=== PATIENT | female | born 1995 | race Caucasian/White ===

== ENCOUNTER 2019-12-09 00:44 | Outpatient (CLI) | payer BC ==
[2019-12-09 05:07] VITALS: BP 117/69; PULSE 105; RESP 16; TEMP 97.8
--- NOTE | 2019-12-26 11:45 | P.MSEPDOC ---
Presenting Problems - Arrival Data Date of Arrival on Unit: 12/09/19 Time of Arrival on Unit: 00:44 Mode of Transport: Ambulatory - Complaint OB-Reason for Admission/Chief Complaint: Decreased Movement Comment: Patient arrives to triage with complaints of decreased movement. Patient states she has not felt the baby move in the last 45 minutes. Medical History - Information : 1 Para: 0 Term: 0 : 0 Abortions: Spontaneous or Elective: 0 Number of Living Children: 0 - Gestational Age Gestational Age by JOE (wks/days): 39 Weeks and 0 Days Review of Systems - Review of Systems Constitutional: No problems Breast: No problems ENT: No problems Cardiovascular: No problems Respiratory: No problems Gastrointestinal: No problems Genitourinary: No problems Musculoskeletal: No problems Neurological: No problems Skin: No problems Vital Signs - Temperature Temperature: 97.8 F Temperature Source: Temporal Artery Scan - Pulse Right Brachial Pulse Rate: 105 Pulse Assessment Method: Automatic Cuff - Respirations Respiratory Rate: 16 Oxygen Delivery Method: Room Air O2 Sat by Pulse Oximetry: 98 - Blood Pressure Right Arm Blood Pressure: 117/69 Blood Pressure Mean: 85 Blood Pressure Source: Automatic Cuff Medical Screen Scoring (Pre) - Cervical Exam Dilation: Exam Deferred Effacement: Exam Deferred - Uterine Contractions Frequency: N/A Duration: N/A Intensity: N/A - Maternal Vital Signs Maternal Temperature: N/A Maternal Blood Pressure: N/A Signs of Preeclampsia: N/A Maternal Respirations: N/A - Maternal Trauma Maternal Trauma: N/A - Assessment - Baby A Baseline FHR: 125 Heart Rate - NICHD Category: Category I (Normal) = 0 NST: Reactive - Total Score - Baby A Total Score - Baby A: 0 - Total Score - Baby B Total Score - Baby B: 0 - Total Score - Baby C Total Score - Baby C: 0 - Level of Risk - Baby A Level of Risk - Baby A: Low (0-5) - Level of Risk - Baby B Level of Risk - Baby B: Low (0-5) - Level of Risk - Baby C Level of Risk - Baby C: Low (0-5) Physician Notification (Pre) - Physician Notified Physician Notified Date: 12/09/19 Physician Notified Time: 01:12 New Order Received: Yes - Notification Comment Comment: RN spoke with Dr. Dong regarding patients concerns of decreased movement. for the past 45 minutes. Patient had a reactive NST, reported feeling lots of movement and could feel the baby hiccup. Patients blood pressure was slightly elevated upon arrival but subsequently went down to 123/61 and 117/69. Patient reported no other symptoms. Patient ok for discharge from perspective with instructions to keep follow up appt. Patient agrees Disposition - Disposition OB Disposition: Discharge to home Discharge Date: 12/09/19 Discharge Time: 01:29 I agree with the RN Medical Screening Exam: Yes Risk & Benefit of care provided described in d/c instruction: Yes Diagnosis: DECREASED MOVEMENTS, THIRD TRIMESTER, FETUS 1
== END 2019-12-09 01:29 | disposition home or self-care (01) ==
LOC: FBPOP 00:44
PROVIDERS: ATTEND Obstetrics & Gynecology Obstetrics
DX: O36.8131 Decreased fetal movements, third trimester, fetus 1 (principal); Z3A.39 39 weeks gestation of pregnancy
CPT/HCPCS: 59025; 99213

== ENCOUNTER 2019-12-16 10:04 | Inpatient (IN) | payer BC ==
[2019-12-21] MEDS ORDERED: OXYTOCIN 10 UNIT/ML 1 ML VIAL IM PRN (07:19)
[2019-12-21] MEDS ORDERED: TERBUTALINE 1 MG/ML VIAL SQ PRN (07:19)
[2019-12-21] MEDS ORDERED: METHYLERGONOVINE 0.2 MG/ML 1 ML AMP IM PRN (07:19)
[2019-12-21] MEDS ORDERED: CARBOPROST TROMETHAMINE 250 MCG/ML 1 ML AMP IM PRN (07:19)
[2019-12-21] MEDS ORDERED: LIDOCAINE 0.5% (PF) 5 MG/ML (50 ML SDV) SQ PRN (07:19)
[2019-12-21 07:30] LABS: Basophils % (A) 0 %; Eosinophils # (A) 0.2 k/uL (0-0.7); Eosinophils % (A) 1 %; HCT 35.4 % (34.0-46.0); HGB 11.8 gm/dL (11.4-16.0); Lymphocytes # (A) 2.3 k/uL (1.0-4.8); Lymphocytes % (A) 21 %; MCH 26.9 pg (25.0-35.0); MCHC 33.2 g/dL (31.0-37.0); MCV 80.9 fL (80.0-100.0); Mean Platelet Volume 7.8; Monocytes # (A) 0.8 k/uL (0-1.0); Monocytes % (A) 7 %; Neutrophils # (A) 7.7 k/uL (1.3-7.7); Neutrophils % (A) 69 %; Platelet Count 401 k/uL (150-450); RBC 4.37 m/uL (3.80-5.40); WBC 11.1 k/uL (3.8-10.6)
[2019-12-21] MEDS ORDERED: OXYTOCIN 30 UNITS/500 ML NS 30 UNIT in SALINE 1 500ML.BAG IV SCH (07:30)
--- NOTE | 2019-12-21 07:32 | P.HPOB ---
History of Present Illness H&P Date: 12/21/19 Chief Complaint: IUP at 40 and 5/sevenths weeks, postdates This is a pleasant 24-year-old 1 para 0 at 40-5/7 weeks that presents to labor and delivery for induction of labor secondary to postdates. Patient has noted good movement. Patient denies contractions or loss of fluid. Patient has been receiving routine care since the first trimester which has been essentially uncomplicated. On blood work she has blood type of O-, rubella status immune, RPR nonreactive, hepatitis B surface engine negative, HIV negative, she did pass her 1 hour gestational diabetes screen. She did receive her T Datz in addition and 10/16. Group beta strep was negative on 11/21. Review of Systems Constitutional: Denies chills, Denies fatigue, Denies fever Ears, nose, mouth and throat: Denies headache Cardiovascular: Denies leg edema Respiratory: Denies dyspnea Gastrointestinal: Denies nausea, Denies vomiting Genitourinary: Denies Past Medical History Past Medical History: No Reported History History of Any Multi-Drug Resistant Organisms: None Reported Past Surgical History: No Surgical Hx Reported Smoking Status: Never smoker Medications and Allergies Home Medications Medication Instructions Recorded Confirmed Type [id number]/Iron/FA/O3/Dha/Epa/Fish 1 tab PO DAILY 12/09/19 12/21/19 History [ Multi-Dha Softgel] Allergies Allergy/AdvReac Type Severity Reaction Status Date / Time No Known Allergies Allergy Verified 12/21/19 07:17 Exam Osteopathic Statement: *. No significant issues noted on an osteopathic structural exam other than those noted in the History and Physical/Consult. Targeted physical exam is performed and state in general this a well-nourished well-developed female in no acute distress, breathing is noted to be nonlabored, heart has regular rate and rhythm, abdomen is gravid and appropriate for gestational age, heart tones are noted to be category 1 and uterine irritability is noted. On cervical exam she is 2/50/-3 station amniotomy is performed and clear fluid was obtained. Results Result Diagrams: 12/21/19 07:15 Assessment and Plan (1) Post-dates Current Visit: Yes Status: Acute Code(s): O48.0 - POST-TERM SNOMED Code(s): 88756903 Plan: Patient is admitted to labor and delivery for planned Pitocin induction of labor. Pitocin started per hospital protocol. Epidural versus Stadol is discussed with patient as options for analgesia during labor.
[2019-12-21] MEDS: LACTATED RINGERS 1,000 ML IV SCH ×3 (07:40→16:52)
[2019-12-21] MEDS ORDERED: ROPIVACAINE 100 MG, fentaNYL (PF) 200 MCG in SODIUM CHLORIDE 0.9% 76 ML EPIDURAL ONE (13:09)
[2019-12-21] MEDS ORDERED: MORPHINE SULFATE (PF) 0.3 MG/0.3 ML SYR ONE (20:20)
[2019-12-21] MEDS ORDERED: PHENYLEPHRINE-0.9% NACL SYG 1 MG/10 ML SYRINGE ONE (20:20)
[2019-12-21] MEDS ORDERED: ONDANSETRON 4 MG/2 ML VIAL ONE (20:20)
[2019-12-21] MEDS ORDERED: OXYTOCIN 10 UNIT/ML 1 ML VIAL ONE (20:20)
--- NOTE | 2019-12-21 21:09 | P.OP ---
Date of Procedure: 12/21/19 Preoperative Diagnosis: IUP at 40 and 5/7 weeks, arrest of descent/dilation Postoperative Diagnosis: Same Procedure(s) Performed: Primary low transverse section Anesthesia: epidural Surgeon: Lalita Dong Insurance Claims Clerk #1: Mark Jama Estimated Blood Loss (ml): 500 IV fluids (ml): 800 Urine output (ml): 100 Pathology: none sent Condition: stable Disposition: observation Indications for Procedure: This pleasant 24-year-old 1 para 0 at 40-5/7 weeks presents to labor and delivery for induction of labor secondary to postdates. Patient made slow progress throughout the day eventually starting at 8-9 cm with no further arrest of descent noted. Patient was counseled on the need for primary secondary to arrest of descent and dilation. Patient stated understanding and wishes to proceed. Operative Findings: Normal uterus tubes and ovaries were appreciated male delivered at 2035, weight of 8 lbs. 1 oz. with Apgars of 8 and 9 at one and 5 minutes respectively. Description of Procedure: Patient was taken back to the operating suite where epidural anesthesia was found be adequate. She was prepped and draped in normal sterile fashion in the dorsal supine position. A Pfannenstiel skin incision was made with the scalpel and carried through to the underlying layer of fascia. The fascia was then incised in the midline and extended laterally. The superior aspect of the fascial incision was grasped shaunna clamps, elevated and underlying rectus muscles dissected off sharply. Attention was then turned to the inferior aspect the fascial incision which was grasped shaunna clamps, elevated and the underlying rectus muscles dissected off sharply once again. The rectus muscles were in the midline the peritoneum was identified and entered. This incision was then extended superiorly and inferiorly with good visualization the bladder. The bladder blade was then inserted into the abdomen the vesicouterine peritoneum was identified and the bladder flap was then created using sharp and blunt dissection. The bladder blade was then reinserted. A hysterotomy incision was then made the infant's head was encountered and the infant was delivered in a vertex presentation the umbilical cord was doubly clamped and cut and the infant was handed off to awaiting RN. The placenta was delivered manually intact with a three-vessel cord being noted. The hysterotomy incision was closed with 0 Vicryl in a running locked fashion 2. Bleeding was noted on the right-hand side of the incision therefore 2 [id number] sutures were used to obtain hemostasis. On further inspection hemostasis was noted. Uterus was returned to the abdomen and the gutters were cleared of all clots and debris. Hysterotomy incision was inspected once again hemostasis was noted. The fascia was then closed with 0 Vicryl in a running fashion from one lateral edge the midline and the other lateral edge the midline. The subcutaneous tissue was irrigated found be hemostatic and closed with 3-0 Vicryl. The skin was closed with 4-0 Vicryl in a subcuticular fashion. Steri-Strips and sterile dressings were applied. and patient tolerated delivery well and are resting comfortably. All counts are correct 2
[2019-12-21] MEDS ORDERED: CITRIC ACID-SODIUM CITRATE 15 ML CUP PO ONE (21:29)
[2019-12-21] MEDS ORDERED: ONDANSETRON 4 MG/2 ML VIAL IVP PRN (22:02)
[2019-12-21] MEDS ORDERED: LANOLIN CREAM 5 GM TUBE TOPICAL PRN (22:02)
[2019-12-21] MEDS ORDERED: diphenhydrAMINE 25 MG CAP PO PRN (22:02)
[2019-12-21] MEDS ORDERED: diphenhydrAMINE 50 MG/ML 1 ML VIAL IVP PRN ×2 (22:02)
[2019-12-21] MEDS ORDERED: ZOLPIDEM 5 MG TAB PO PRN (22:02)
[2019-12-21] MEDS ORDERED: ACETAMINOPHEN TAB 325 MG TAB PO PRN (22:02)
[2019-12-21] MEDS ORDERED: diphenhydrAMINE 50 MG CAP PO PRN (22:02)
[2019-12-21] MEDS ORDERED: NALOXONE 0.4 MG/ML 1 ML VIAL IV PRN (22:02)
[2019-12-21] MEDS ORDERED: METOCLOPRAMIDE 5 MG/ML 2 ML VIAL IVP PRN (22:02)
[2019-12-21] MEDS ORDERED: IBUPROFEN IV 800 MG in SODIUM CHLORIDE 0.9% 250 ML IV PRN (22:05)
[2019-12-21] MEDS ORDERED: OXYTOCIN 20 UNITS/1000 ML NS 1,000 ML IV SCH (22:15)
[2019-12-22] MEDS: LACTATED RINGERS 1,000 ML IV SCH ×2 (00:30→09:50)
[2019-12-22] MEDS ORDERED: Rhogam IMMUNE GLOBULIN 1,500 UNIT/1 ML IM ONE (03:58)
[2019-12-22] MEDS: HYDROcodone/APAP 5-325MG 1 EACH TAB PO PRN ×2 (06:59→16:22)
--- NOTE | 2019-12-22 07:06 | P.PN ---
Progress Note - Text Progress Note Date: 12/22/19 Patient without complaints. Ambulating without weakness or paresthesia. Denies pruritis. Pain controlled. Denies headache. Back puncture site c/d A/P POD#1 s/p with epidural duramorph - doing well
[2019-12-22 07:22] LABS: Basophils % (A) 0 %; Eosinophils # (A) 0.1 k/uL (0-0.7); Eosinophils % (A) 1 %; HCT 28.4 % (34.0-46.0); Lymphocytes # (A) 1.7 k/uL (1.0-4.8); Lymphocytes % (A) 14 %; MCH 26.9 pg (25.0-35.0); MCHC 32.6 g/dL (31.0-37.0); MCV 82.3 fL (80.0-100.0); Mean Platelet Volume 7.8; Monocytes # (A) 0.7 k/uL (0-1.0); Monocytes % (A) 5 %; Neutrophils # (A) 9.5 k/uL (1.3-7.7); Neutrophils % (A) 78 %; Platelet Count 308 k/uL (150-450); RBC 3.45 m/uL (3.80-5.40); RDW 15.4 % (11.5-15.5); WBC 12.2 k/uL (3.8-10.6)
[2019-12-22 07:26] LABS: HGB 9.3 gm/dL (11.4-16.0)
[2019-12-22] MEDS: SENNOSIDES-DOCUSATE SODIUM 1 EACH TAB PO SCH ×2 (07:32→22:12)
--- NOTE | 2019-12-22 10:14 | P.PNOBGPC ---
Subjective - Subjective Patient reports: Reports appetite normal, Reports voiding normally, Reports pain well controlled, Reports ambulating normally : doing well, nursing well Objective - Vital Signs Latest vital signs: Vital Signs Temp Pulse Resp BP Pulse Ox 12/22/19 08:00 97.9 F 78 16 127/74 12/22/19 04:00 98.1 F 92 18 114/65 98 12/21/19 23:10 109 H 18 122/61 98 12/21/19 22:40 106 H 18 122/63 96 12/21/19 22:10 98.1 F 106 H 18 121/63 98 12/21/19 21:55 101 H 18 119/59 98 12/21/19 21:40 97.1 F L 98 18 116/57 98 12/21/19 21:25 103 H 18 119/59 97 12/21/19 21:10 96.8 F L 111 H 18 126/85 100 Intake and Output 12/21/19 12/22/19 12/22/19 22:59 06:59 14:59 Intake Total 800 600 Output Total 1100 450 Balance -300 600 -450 Intake: IV 800 Oral 600 Output: Urine 600 450 Estimated Blood Loss 500 Other: Voiding Method Indwelling Catheter Indwelling Catheter # Voids 1 - Exam Extremities: Present: normal Abdomen: Present: normal appearance, soft. Absent: distention, tenderness Incision: Present: normal, dry, intact Uterus: Present: normal, firm (The uterine fundus is tonic and minimally tender just below the umbilicus.) - Labs Labs: Abnormal Lab Results - Last 24 Hours (Table) 12/22/19 Range/Units 06:58 WBC 12.2 H (3.8-10.6) k/uL RBC 3.45 L (3.80-5.40) m/uL Hgb 9.3 L D (11.4-16.0) gm/dL Hct 28.4 L (34.0-46.0) % Neutrophils # 9.5 H (1.3-7.7) k/uL Assessment and Plan (1) Status post section Current Visit: Yes Status: Acute Code(s): Z98.891 - HISTORY OF UTERINE SCAR FROM PREVIOUS SURGERY SNOMED Code(s): 173434658 Plan: Continue routine postoperative care. I am encouraged her to ambulate in the hallways 4 times daily at least. I would anticipate possible discharge home zahra avni pending applications.
[2019-12-22] MEDS: IBUPROFEN 600 MG TAB PO PRN ×2 (10:38→20:12)
[2019-12-22] MEDS: SIMETHICONE 80 MG CHEWABLE PO PRN (18:19)
[2019-12-22] MEDS ORDERED: INFLUENZA VACCINE (6 MOS+) 60 MCG/0.5 ML SYRINGE IM ONE (19:45)
[2019-12-23] MEDS: HYDROcodone/APAP 5-325MG 1 EACH TAB PO PRN ×3 (00:21→22:18)
[2019-12-23] MEDS: IBUPROFEN 600 MG TAB PO PRN ×3 (03:50→19:30)
[2019-12-23] MEDS: SIMETHICONE 80 MG CHEWABLE PO PRN ×3 (05:44→22:18)
[2019-12-23] MEDS: SENNOSIDES-DOCUSATE SODIUM 1 EACH TAB PO SCH ×2 (08:27→19:31)
--- NOTE | 2019-12-23 10:58 | P.PNOBGPC ---
Subjective - Subjective Interval history: The patient reports still having difficulty getting out of bed and ambulating. She wishes to remain in the hospital for 1 more day. Patient reports: Reports appetite normal, Reports voiding normally, Reports pain well controlled, Reports ambulating normally [place]: doing well Objective - Vital Signs Latest vital signs: Vital Signs Temp Pulse Resp BP Pulse Ox 12/23/19 08:00 98 F 80 16 136/80 12/23/19 00:00 97.9 F 97 18 120/59 96 12/22/19 20:00 98.3 F 101 H 18 122/73 97 12/22/19 16:00 98.0 F 98 18 109/55 98 12/22/19 12:00 98.0 F 98 18 122/73 96 Intake and Output 12/22/19 12/23/19 12/23/19 22:59 06:59 14:59 Other: # Voids 1 2 2 - Exam Extremities: Present: normal Abdomen: Present: normal appearance, soft. Absent: distention, tenderness Incision: Present: normal, dry, intact Uterus: Present: normal, firm (Uterine fundus is tonic and appropriately tender around the umbilicus.) Assessment and Plan (1) Status post section Current Visit: Yes Status: Acute Code(s): Z98.891 - HISTORY OF UTERINE SCAR FROM PREVIOUS SURGERY SNOMED Code(s): 130792075 Plan: Continue routine postoperative care. Again, the patient is encouraged to ambulate routinely. Possible discharge home tomorrow pending no complications and resolution of her pain concerns.
[2019-12-23] MEDS: HYDROcodone/APAP 7.5-325MG 1 EACH TAB PO PRN (11:39)
[2019-12-24] MEDS: IBUPROFEN 600 MG TAB PO PRN ×3 (01:33→14:22)
[2019-12-24] MEDS: HYDROcodone/APAP 5-325MG 1 EACH TAB PO PRN (04:42)
--- NOTE | 2019-12-24 04:45 | XR ---
EXAMINATION TYPE: XR chest 2V DATE OF EXAM: 12/24/2019 COMPARISON: NONE HISTORY: Chest pain TECHNIQUE: FINDINGS: Heart and mediastinum are normal. Lungs are clear. Diaphragm is normal. Bony thorax appears normal. IMPRESSION: Normal chest
[2019-12-24] MEDS: SIMETHICONE 80 MG CHEWABLE PO PRN ×2 (04:53→10:42)
[2019-12-24 07:50] VITALS: BP 127/78; PULSE 115; TEMP 98.5
[2019-12-24] MEDS: SENNOSIDES-DOCUSATE SODIUM 1 EACH TAB PO SCH (08:09)
[2019-12-24 08:46] VITALS: RESP 18
[2019-12-24] MEDS: HYDROcodone/APAP 7.5-325MG 1 EACH TAB PO PRN (10:42)
--- NOTE | 2019-12-24 13:43 | P.DS ---
Providers Date of admission: 12/21/19 06:17 Expected date of discharge: 12/24/19 Attending physician: Lalita Dong Primary care physician: Stated None - Discharge Diagnosis(es) (1) Post-dates Current Visit: Yes Status: Acute (2) Arrest of descent, delivered, current hospitalization Current Visit: Yes Status: Acute (3) Arrest of dilation, delivered, current hospitalization Current Visit: Yes Status: Acute (4) Status post section Current Visit: Yes Status: Acute Hospital Course: This is a 24-year-old 1 now para 1 that presented to labor and delivery at 40-5/7 weeks for induction of labor secondary to postdates. Patient made very slow progress throughout the day eventually stalling at 8-9 cm with no further descent of the head being noted. Patient was counseled on primary which she agreed upon and the was performed without difficulty. For further details on the please see the operative report. Male was delivered at 2035, weight of 8 lbs. 1 oz. with Apgars of 8 and 9 at one and 5 minutes respectively. Patient's postoperative course has been essentially uneventful patient has been struggling with some gas discomfort but all labs and vitals and physical exam are normal. Patient is ambulating and voiding without difficulty. She is tolerating regular diet wit hout nausea or vomiting. Her lochia is minimal. She is breast-feeding without difficulty. Because of her gas discomfort she underwent a chest x-ray and EKG. Both were normal. Patient's Biaxin is been in the 90s. Patient denies being short of breath. Patient states her pain is well-controlled with [place]/Motrin. Patient Condition at Discharge: Good Plan - Discharge Summary New Discharge Prescriptions: No Action [id number]/Iron/FA/O3/Dha/Epa/Fish [ Multi-Dha Softgel] 1 tab PO DAILY Discharge Medication List [id number]/Iron/FA/O3/Dha/Epa/Fish [ Multi-Dha Softgel] 1 tab PO DAILY 12/09/19 [History] Follow up Appointment(s)/Referral(s): Lalita Dong DO [Doctor of Osteopathic Medicine] - 2 Weeks Patient Instructions/Handouts: (DC), (GEN)
== END 2019-12-24 15:55 | disposition home or self-care (01) | DRG 788 ==
LOC: 4FBP 12-21 06:17
PROVIDERS: ADMIT Obstetrics & Gynecology Obstetrics; ATTEND Obstetrics & Gynecology Obstetrics
PROC: 3E033VJ Introduction of Other Hormone into Peripheral Vein, Percutaneous Approach (ICD-10-PCS; principal; 2019-12-21 20:29)
PROC: 10D00Z1 Extraction of Products of Conception, Low, Open Approach (ICD-10-PCS; principal; 2019-12-21 20:29)
DX: O48.0 Post-term pregnancy (principal); O62.0 Primary inadequate contractions; O62.1 Secondary uterine inertia; Z37.0 Single live birth; Z3A.40 40 weeks gestation of pregnancy
CPT/HCPCS: 71046; 85025; 85461; 86850; 86900; 86901; 90686; 93005

== ENCOUNTER 2024-03-19 20:49 | Emergency (ER) | payer BC, OTHER ==
--- NOTE | 2024-03-19 21:27 | ED ---
General Adult HPI - General Stated complaint: 28 weeks preg,Facial/Arm Numbness-sent by Time Seen by Provider: 03/19/24 21:22 Source: RN notes reviewed - History of Present Illness Initial comments: 28-year-old female A0 currently 28 weeks presenting to the ED with complaint of headache. Patient reports since January has had intermittent headaches decreased vision of both her eyes. Describes it similar to tunnel vision. She does note a history of migraines in the past however reports that headache that she experiences with these episodes is different in nature. Denies floaters or flashers. States since the start has had 5 episodes of this. Over the last 3 episodes notes paresthesias down her left arm numbness across her face. Notes associated generalized fatigue with this. No chest pain or shortness of breath. No fever or chills. No other complaints at this time. - Related Data Home Medications Medication Instructions Recorded Confirmed [id number]/Iron/FA/O3/Dha/Epa/Fish 1 tab PO DAILY 12/09/19 12/21/19 [ Multi-Dha Softgel] Previous Rx's Medication Instructions Recorded Cephalexin [Keflex] 500 mg PO Q6HR 7 Days #28 cap 03/20/24 Allergies Allergy/AdvReac Type Severity Reaction Status Date / Time No Known Allergies Allergy Verified 03/19/24 21:28 Review of Systems ROS Statement: Those systems with pertinent positive or pertinent negative responses have been documented in the HPI. ROS Other: All systems not noted in ROS Statement are negative. Past Medical History Past Medical History: No Reported History History of Any Multi-Drug Resistant Organisms: None Reported Past Surgical History: No Surgical Hx Reported Past Anesthesia/Blood Transfusion Reactions: No Reported Reaction Past Psychological History: No Psychological Hx Reported Past Alcohol Use History: Occasional Past Drug Use History: None Reported General Exam General appearance: alert, in no apparent distress Eye exam: Present: normal appearance, PERRL, EOMI Neck exam: Present: normal inspection Respiratory exam: Present: normal lung sounds bilaterally Cardiovascular Exam: Present: regular rate GI/Abdominal exam: Present: soft, normal bowel sounds. Absent: distended, ten derness, guarding, rebound, rigid Extremities exam: Present: normal inspection Neurological exam: Present: alert, oriented X3, CN II-XII intact (Finge r-to-nose, [id number], rapid alternating hand movements intact.) Skin exam: Present: warm, dry Course Vital Signs 03/19/24 03/20/24 21:22 01:39 Temperature 98.2 F Pulse Rate 115 H 87 Respiratory 18 18 Rate Blood Pressure 132/86 122/80 O2 Sat by Pulse 97 98 Oximetry Medical Decision Making - Medical Decision Making Was pt. sent in by a medical professional or institution (, CARMELITA, NETWORK DESIGN ARCHITECT, urgent care, hospital, or correction...) When possible be specific @ -No Did you speak to anyone other than the patient for history (EMS, parent, family, police, friend...)? What history was obtained from this source @ -No Did you review nursing and triage notes (agree or disagree)? Why? @ -I reviewed and agree with nursing and triage notes Were old charts reviewed (outside hosp., previous admission, EMS record, old EKG, old radiological studies, urgent care reports/EKG's, correction records)? Report findings @ -No old charts were reviewed Differential Diagnosis (chest pain, altered mental status, abdominal pain women, abdominal pain men, vaginal bleeding, weakness, fever, dyspnea, syncope, headache, dizziness, GI bleed, back pain, seizure, CVA, palpatations, mental health, musculoskeletal)? @ -Differential Headache: Migraine, tension, cluster, carbon monoxide, central venous thrombosis, pension karma temporal arteritis, acute closure glaucoma, intercranial hemorrhage, mastoiditis, sinusitis, head injury, this is not meant to be an all-inclusive list. EKG interpreted by me (3pts min.). @ -None X-rays interpreted by me (1pt min.). @ -None done CT interpreted by me (1pt min.). @ -None done U/S interpreted by me (1pt. min.). @ -None done What testing was considered but not performed or refused? (CT, X-rays, U/S, labs)? Why? @ -Imaging was considered however with patient being felt at this time risks of imaging outweigh benefits and at this time imaging held. What meds were considered but not given or refused? Why? @ -None Did you discuss the management of the patient with other professionals (professionals i.e. , CARMELITA, NETWORK DESIGN ARCHITECT, lab, RT, psych nurse, social media content manager, powder mill operator, teacher, control officer manager, hospice case manager)? Give summary @ -No Was smoking cessation discussed for >3mins.? @ -No Was critical care preformed (if so, how long)? @ -No Were there social determinants of health that impacted care today? How? (Homelessness, low income, unemployed, alcoholism, drug addiction, transportation, low edu. Level, literacy, decrease access to med. care, senior care, rehab)? @ -No Was there de-escalation of care discussed even if they declined (Discuss DNR or withdrawal of care, Hospice)? DNR status @ -No What co-morbidities impacted this encounter? (DM, HTN, Smoking, COPD, CAD, Cancer, CVA, ARF, Chemo, Hep., AIDS, mental health diagnosis, sleep apnea, morbid obesity)? @ - Was patient admitted / discharged? Hospital course, mention meds given and route, prescriptions, significant lab abnormalities, going to OR and other pertinent info. @ -Discharge 28-year-old female presented to the ED with complaints of intermittent headaches with tunnel vision with some associated paresthesias of her face and left arm. Laboratory studies reviewed. Labs including CBC CMP largely unremarkable. Urine does show some evidence of infection with large leukocyte esterase, 52 white blood cells, and many bacteria. Patient reports she is asymptomatic. However due to provide prescription for Keflex. In terms of imaging, felt at this time with an unremarkable neurologic exam risks of harm versus benefit outweigh need for imaging. Patient discharged home in stable condition with referral to see neurology. Discussed strict return precautions with patient and family who verbalized agreement. Undiagnosed new problem with uncertain prognosis? @ -No Drug Therapy requiring intensive monitoring for toxicity (Heparin, Nitro, Insulin, Cardizem)? @ -No Were any procedures done? @ -No Diagnosis/symptom? @ -Headache Acute, or Chronic, or Acute on Chronic? @ -Acute Uncomplicated (without systemic symptoms) or Complicated (systemic symptoms)? @ -Complicated Side effects of treatment? @ -No Exacerbation, Progression, or Severe Exacerbation? @ -No Poses a threat to life or bodily function? How? (Chest pain, [place], [place], pneumonia, PE, COPD, DKA, ARF, appy, cholecystitis, CVA, Diverticulitis, Homicidal, Suicidal, threat to staff... and all critical care pts) @ -Unlikely at this time - Lab Data Result diagrams: 03/20/24 00:11 03/20/24 00:15 Lab Results 03/20/24 03/20/24 03/20/24 Range/Units 00:11 00:15 00:16 WBC 10.6 (3.8-10.6) k/uL RBC 3.81 (3.80-5.40) m/uL Hgb 10.8 L (11.4-16.0) gm/dL Hct 33.0 L (34.0-46.0) % MCV 86.7 (80.0-100.0) fL MCH 28.5 (25.0-35.0) pg MCHC 32.8 (31.0-37.0) g/dL RDW 13.1 (11.5-15.5) % Plt Count 381 (150-450) k/uL MPV 7.6 Neutrophils % 68 % Lymphocytes % 22 % Monocytes % 7 % Eosinophils % 1 % Basophils % 1 % Neutrophils # 7.2 (1.3-7.7) k/uL Lymphocytes # 2.4 (1.0-4.8) k/uL Monocytes # 0.7 (0-1.0) k/uL Eosinophils # 0.2 (0-0.7) k/uL Basophils # 0.1 (0-0.2) k/uL Sodium 136 L (137-145) mmol/L Potassium 3.9 (3.5-5.1) mmol/L Chloride 107 (98-107) mmol/L Carbon Dioxide 23 (22-30) mmol/L Anion Gap 6 mmol/L BUN 9 (7-17) mg/dL Creatinine 0.48 L (0.52-1.04) mg/dL Est GFR (CKD-EPI)AfAm >90 (>60 ml/min/1.73 sqM) Est GFR (CKD-EPI)NonAf >90 (>60 ml/min/1.73 sqM) Glucose 83 (74-99) mg/dL Calcium 9.0 (8.4-10.2) mg/dL Total Bilirubin 0.4 (0.2-1.3) mg/dL AST 24 (14-36) U/L ALT 11 (4-34) U/L Alkaline Phosphatase 102 (38-126) U/L C-Reactive Protein 0.7 (<1.0) mg/dL Total Protein 6.5 (6.3-8.2) g/dL Albumin 3.6 (3.5-5.0) g/dL Urine Color Colorless Urine Appearance Cloudy H (Clear) Urine pH 6.5 (5.0-8.0) Ur Specific [place] 1.008 (1.001-1.035) Urine Protein Negative (Negative) Urine Glucose (UA) Negative (Negative) Urine Ketones Negative (Negative) Urine Blood Negative (Negative) Urine Nitrite Negative (Negative) Urine Bilirubin Negative (Negative) Urine Urobilinogen <2.0 (<2.0) mg/dL Ur Leukocyte Esterase Large H (Negative) Urine RBC 1 (0-5) /hpf Urine WBC 52 H (0-5) /hpf Ur Squamous Epith Cells 4 (0-4) /hpf Amorphous Sediment Rare H (None) /hpf Urine Bacteria Many H (None) /hpf Hyaline Casts 1 (0-2) /lpf Urine Mucus Rare H (None) /hpf Disposition Clinical Impression: Headache Disposition: HOME SELF-CARE Condition: Good Additional Instructions: Please return to the Emergency Department if symptoms worsen or any other concerns. Please follow-up with neurology and establish primary care. Prescriptions: Cephalexin [Keflex] 500 mg PO Q6HR 7 Days #28 cap Is patient prescribed a controlled substance at d/c from ED?: No Referrals: Lalita Dong DO [Primary Care Provider] - 1-2 days Corina Boland MD [Medical Doctor] - 1-2 days Time of Disposition: 02:41
[2024-03-19 21:28] VITALS: RESP 18; TEMP 98.2
[2024-03-20 00:47] LABS: Basophils # (A) 0.1 k/uL (0-0.2); Basophils % (A) 1 %; Eosinophils # (A) 0.2 k/uL (0-0.7); Eosinophils % (A) 1 %; HGB 10.8 gm/dL (11.4-16.0); Lymphocytes # (A) 2.4 k/uL (1.0-4.8); Lymphocytes % (A) 22 %; MCH 28.5 pg (25.0-35.0); MCHC 32.8 g/dL (31.0-37.0); MCV 86.7 fL (80.0-100.0); Mean Platelet Volume 7.6; Monocytes # (A) 0.7 k/uL (0-1.0); Monocytes % (A) 7 %; Neutrophils # (A) 7.2 k/uL (1.3-7.7); Neutrophils % (A) 68 %; Platelet Count 381 k/uL (150-450); RBC 3.81 m/uL (3.80-5.40); RDW 13.1 % (11.5-15.5); WBC 10.6 k/uL (3.8-10.6)
[2024-03-20 01:07] LABS: ALT 11 U/L (4-34); AST 24 U/L (14-36); African American GFR (CKD) >90 (>60 ml/min/1.73 sqM); Albumin 3.6 g/dL (3.5-5.0); Alkaline Phosphatase 102 U/L (38-126); Anion Gap 6 mmol/L; Blood Urea Nitrogen 9 mg/dL (7-17); C Reactive Protein 0.7 mg/dL (<1.0); Carbon Dioxide 23 mmol/L (22-30); Chloride 107 mmol/L (98-107); Glucose 83 mg/dL (74-99); Non-African American GFR(CKD) >90 (>60 ml/min/1.73 sqM); Potassium 3.9 mmol/L (3.5-5.1); Sodium 136 mmol/L (137-145); Total Bilirubin 0.4 mg/dL (0.2-1.3); Total Protein 6.5 g/dL (6.3-8.2)
[2024-03-20 01:08] LABS: Amorphous Sediment,Urine Rare /hpf; Appearance,Urine Cloudy (Clear); Bacteria,Urine Many /hpf; Bilirubin,Urine Negative (Negative); Blood,Urine Negative (Negative); Color,Urine Colorless; Glucose,Urine (UA) Negative (Negative); Hyaline Casts,Urine 1 /lpf (0-2); Ketones,Urine Negative (Negative); Leukocyte Esterase,Urine Large (Negative); Mucus,Urine Rare /hpf; Nitrite,Urine Negative (Negative); PH, Urine 6.5 (5.0-8.0); Protein,Urine Negative (Negative); RBC,Urine 1 /hpf (0-5); Specific Gravity,Urine 1.008 (1.001-1.035); Squamous Epithelial Cell,Urine 4 /hpf (0-4); Urobilinogen,Urine <2.0 mg/dL (<2.0); WBC,Urine 52 /hpf (0-5)
[2024-03-20 03:01] VITALS: BP 117/77; PULSE 62
[2024-03-20 08:33] LABS: Erythrocyte Sedimentation Rate 53 mm/Hr (0-20)
== END 2024-03-20 03:01 | disposition home or self-care (01) ==
LOC: EC 20:49
DX: O99.893 Other specified diseases and conditions complicating puerperium (principal); R51.9 Headache, unspecified; Z3A.28 28 weeks gestation of pregnancy
CPT/HCPCS: 36415; 80053; 81001; 85025; 85652; 86140; 87086; 99284

== ENCOUNTER 2024-06-14 09:57 | Inpatient (IN) | payer OTHER ==
[2024-06-14] MEDS ORDERED: OXYTOCIN 10 UNIT/ML 1 ML VIAL IM PRN (11:16)
[2024-06-14] MEDS ORDERED: TRANEXAMIC 1,000 MG/100ML-NACL 1,000 MG in EMPTY BAG 1 BAG IV PRN (11:16)
[2024-06-14] MEDS ORDERED: CARBOPROST TROMETHAMINE 250 MCG/ML 1 ML AMP IM PRN (11:16)
[2024-06-14] MEDS ORDERED: METHYLERGONOVINE 0.2 MG/ML 1 ML AMP IM PRN (11:16)
[2024-06-14] MEDS ORDERED: miSOPROStoL 200 MCG TAB PO PRN (11:16)
[2024-06-14 11:44] LABS: Basophils # (A) 0.1 k/uL (0-0.2); Basophils % (A) 1 %; Eosinophils # (A) 0.1 k/uL (0-0.7); Eosinophils % (A) 1 %; HCT 30.7 % (34.0-46.0); HGB 9.8 gm/dL (11.4-16.0); Hypochromasia Marked; Lymphocytes % (A) 21 %; MCH 23.6 pg (25.0-35.0); MCHC 31.8 g/dL (31.0-37.0); MCV 74.1 fL (80.0-100.0); Mean Platelet Volume 7.9; Microcytosis Slight; Monocytes # (A) 0.5 k/uL (0-1.0); Monocytes % (A) 6 %; Neutrophils # (A) 6.4 k/uL (1.3-7.7); Neutrophils % (A) 69 %; Platelet Count 415 k/uL (150-450); Poikilocytosis Slight; RBC 4.15 m/uL (3.80-5.40); RDW 15.6 % (11.5-15.5); WBC 9.2 k/uL (3.8-10.6)
[2024-06-14] MEDS: CITRIC ACID-SODIUM CITRATE 15 ML CUP PO ONE (11:49)
[2024-06-14] MEDS: LACTATED RINGERS 1,000 ML IV ONE (11:50)
[2024-06-14] MEDS ORDERED: NALBUPHINE 10 MG/ML (10 ML MDV) ONE (12:13)
[2024-06-14] MEDS ORDERED: OXYTOCIN 30 UNITS/500 ML NS BAG IV ONE (12:13)
[2024-06-14] MEDS ORDERED: MORPHINE SULFATE (PF) 0.3 MG/0.3 ML SYR ONE (12:13)
[2024-06-14] MEDS ORDERED: PHENYLEPHRINE 10 MG/ML VIAL ONE (12:13)
[2024-06-14] MEDS ORDERED: diphenhydrAMINE 50 MG/ML 1 ML VIAL ONE (12:13)
[2024-06-14] MEDS ORDERED: ONDANSETRON 4 MG/2 ML VIAL ONE (12:13)
--- NOTE | 2024-06-14 12:55 | P.HPOB ---
History of Present Illness H&P Date: 06/14/24 Chief Complaint: IUP at 39 weeks,h/o section desires repeat 29-year-old 2 para 1-0-0-1 that presents to labor and delivery at 39-2/7 weeks for scheduled repeat section with tubal ligation. Patient has been receiving routine care which has been essentially uncomplicated. Patient notes good movement denies vaginal bleeding loss of fluid or contractions. On blood work this patient has a blood type of O-, rubella status i mmune, hepatitis B surface engine negative, HIV negative, RPR is nonreactive, grew beta strep culture is negative. Review of Systems Constitutional: Denies chills, Denies fatigue, Denies fever Ears, nose, mouth and throat: Denies headache Cardiovascular: Reports leg edema Respiratory: Denies dyspnea Gastrointestinal: Denies constipation, Denies diarrhea, Denies nausea, Denies vomiting Genitourinary: Reports Past Medical History Past Medical History: No Reported History History of Any Multi-Drug Resistant Organisms: None Reported Past Surgical History: No Surgical Hx Reported Past Anesthesia/Blood Transfusion Reactions: No Reported Reaction Past Psychological History: No Psychological Hx Reported Smoking Status: Never smoker Past Alcohol Use History: Occasional Past Drug Use History: None Reported - Past Family History Mother Family Medical History: No Reported History Medications and Allergies Home Medications Medication Instructions Recorded Confirmed Type [id number]/Iron/FA/O3/Dha/Epa/Fish 1 tab PO DAILY 12/09/19 06/14/24 History [ Multi-Dha Softgel] Allergies Allergy/AdvReac Type Severity Reaction Status Date / Time No Known Allergies Allergy Verified 06/14/24 11:09 Exam Osteopathic Statement: *. No significant issues noted on an osteopathic structural exam other than those noted in the History and Physical/Consult. Vital Signs Temp Pulse Resp BP Pulse Ox 06/14/24 11:08 98.0 F 100 16 118/76 98 Intake and Output 06/13/24 06/14/24 06/14/24 22:59 06:59 14:59 Other: Weight 99.79 kg Targeted physical exam is performed this date General Is a well-nourished well- developed female in no acute distress, breathing is nonlabored, heart has a regular and rhythm, abdomen is gravid and appropriate for gestational age, cervical exam is deferred, heart tones noted be category 1 and she is not sherman. Results Result Diagrams: 06/14/24 11:00 Abnormal Lab Results - Last 24 Hours (Table) 06/14/24 Range/Units 11:00 Hgb 9.8 L (11.4-16.0) gm/dL Hct 30.7 L (34.0-46.0) % MCV 74.1 L (80.0-100.0) fL MCH 23.6 L (25.0-35.0) pg RDW 15.6 H (11.5-15.5) % Assessment and Plan (1) Term Current Visit: Yes Status: Acute Code(s): Z34.90 - ENCNTR FOR SUPRVSN OF NORMAL , UNSP, UNSP TRIMESTER SNOMED Code(s): 77456416 (2) History of section Current Visit: Yes Status: Acute Code(s): Z98.891 - HISTORY OF UTERINE SCAR FROM PREVIOUS SURGERY SNOMED Code(s): 403418707 Plan: 29-year-old G2, P1 at 39-2/7 weeks that presents to labor and delivery for scheduled repeat section. Patient has a history of a primary and requests repeat. Patient is counseled on section and risks are reviewed. Patient states understanding and anesthesia is in to see patient.
[2024-06-14] MEDS ORDERED: diphenhydrAMINE 50 MG/ML 1 ML VIAL IVP PRN ×2 (12:58)
[2024-06-14] MEDS ORDERED: ZOLPIDEM 5 MG TAB PO PRN (12:58)
[2024-06-14] MEDS ORDERED: NALOXONE 0.4 MG/ML 1 ML VIAL IV PRN (12:58)
[2024-06-14] MEDS ORDERED: diphenhydrAMINE 25 MG CAP PO PRN (12:58)
[2024-06-14] MEDS ORDERED: METOCLOPRAMIDE 5 MG/ML 2 ML VIAL IVP PRN (12:58)
[2024-06-14] MEDS ORDERED: diphenhydrAMINE 50 MG CAP PO PRN (12:58)
[2024-06-14] MEDS ORDERED: ONDANSETRON 4 MG/2 ML VIAL IVP PRN (12:58)
--- NOTE | 2024-06-14 12:58 | P.OP ---
Date of Procedure: 06/14/24 Preoperative Diagnosis: IUP at 39-2/7 weeks, history of section x 1, desires repeat family- status complete Postoperative Diagnosis: Same Procedure(s) Performed: Repeat section with bilateral salpingectomy Anesthesia: spinal Surgeon: Lalita Dong Glass Designer #1: Emily Prince Estimated Blood Loss (ml): 250 IV fluids (ml): 1,000 Urine output (ml): 50 (Clear) Pathology: none sent Condition: stable Disposition: observation Indications for Procedure: History of section x 1, desires repeat Operative Findings: Normal uterus tubes and ovaries were appreciated, viable female infant delivered at 1232, weight of 8 pounds 11 ounces Description of Procedure: The patient was prepped and draped in the usual fashion after spinal anesthesia was administered by the anesthesia department. A Pfannenstiel incision was made and extended of the abdominal cavity without difficulty. The bladder peritoneum was elevated and incised and reflected distally. A 2 cm incision was made in the transverse plane of the lower uterine segment to enter the uterus at which time clear fluid was noted. The incision was extended in both directions using the bandage scissors. The head was encountered within the field and delivered up and through the incision where the nose and mouth were thoroughly suctioned. Remainder of the infant was delivered onto the surgical field where the cord was doubly clamped, cut, and the was passed for resuscitative measures with a waiting RN. A segment of cord was then doubly clamped, cut, and set aside should cord gases become necessary. The placenta was delivered manually, intact, and was grossly normal with a grossly normal three-vessel cord. The uterus was exteriorized and the interior cavity of the uterus swept of any remaining placental and membranous fragments with a laparotomy sponge. The margins of the incision were grasped with Duong clamps and the incision closed in 2 layers. First layer was a running locking layer of 0 Vicryl from margin to margin good hemostasis appreciated. Any small points of bleeding were then made hemostatic with the Bovie. The left fallopian tube was then elevated and the mesosalpinx was coagulated and transected with the LigaSure. This was then repeated on the opposite side. Hemostasis was noted bilaterally. Once hemostasis was achieved, the posterior cul-de-sac was suctioned with a guard and the uterine and ovarian findings are as noted above. The uterus was replaced within the abdominal cavity and the gutters swept of any remaining blood fluid or clot. The incision was again reexamined and hemostasis was noted to be excellent. Any small point of bleeding were made hemostatic with the Bovie. Once hemostasis was achieved the parietal peritoneum was loosely reapproximated. The layer of muscles were examined and made hemostatic with the Bovie. Attention was then turned to the fascia which was closed with 2 running stitches of 0 Vicryl proceeding from 1 lateral edge to the other the subcutaneous tissues were irrigated, made hemostatic with the Bovie, and reapproximated with a running stitch of 30 Vicryl. The skin was reapproximated with 4-0 Vicryl. Estimated blood loss for the case was approximately 600 mL. All sponge instrument and needle counts are correct. There were no complications. The patient tolerated the procedure well and proceeded to the recovery room in stable condition. Both mother and infant are resting comfortably in recovery.
[2024-06-14] MEDS: ACETAMINOPHEN IV (For NPO) 1,000 MG in EMPTY BAG 1 BAG IVPB SCH (15:35)
[2024-06-14] MEDS: Rhogam IMMUNE GLOBULIN 1,500 UNIT/1 ML IM ONE (20:59)
[2024-06-14] MEDS: IBUPROFEN IV 800 MG in SODIUM CHLORIDE 0.9% 250 ML IV SCH (21:26)
[2024-06-14] MEDS: SIMETHICONE 80 MG CHEWABLE PO PRN (21:26)
[2024-06-14] MEDS: LACTATED RINGERS 1,000 ML IV SCH ×2 (22:01→22:02)
[2024-06-14] MEDS: ACETAMINOPHEN TAB 500 MG TAB PO SCH (22:02)
[2024-06-14] MEDS: SENNOSIDES-DOCUSATE SODIUM 1 EACH TAB PO SCH (22:03)
[2024-06-14] MEDS: IBUPROFEN 600 MG TAB PO SCH (22:03)
[2024-06-15] MEDS ORDERED: IBUPROFEN IV 800 MG in SODIUM CHLORIDE 0.9% 250 ML IV SCH
[2024-06-15 04:38] LABS: Basophils # (A) 0.1 k/uL (0-0.2); Basophils % (A) 1 %; Eosinophils # (A) 0.1 k/uL (0-0.7); Eosinophils % (A) 1 %; HCT 26.9 % (34.0-46.0); HGB 8.5 gm/dL (11.4-16.0); Hypochromasia Moderate; Lymphocytes # (A) 2.5 k/uL (1.0-4.8); Lymphocytes % (A) 21 %; MCH 23.6 pg (25.0-35.0); MCHC 31.6 g/dL (31.0-37.0); MCV 74.7 fL (80.0-100.0); Mean Platelet Volume 8.2; Microcytosis Slight; Monocytes # (A) 0.8 k/uL (0-1.0); Monocytes % (A) 7 %; Neutrophils # (A) 8.3 k/uL (1.3-7.7); Neutrophils % (A) 70 %; Platelet Count 349 k/uL (150-450); Poikilocytosis Slight; RDW 15.8 % (11.5-15.5); WBC 11.9 k/uL (3.8-10.6)
--- NOTE | 2024-06-15 06:47 | P.PN ---
Progress Note - Text 06/15/24 609am 29-year-old female status post with spinal Duramorph patient seen and evaluated for postop pain control she has a VAS of 6 with no complaints of nausea or vomiting. Doing well
--- NOTE | 2024-06-15 09:46 | P.PNOBGPC ---
Subjective - Subjective Principal diagnosis: Postop day 1, repeat section Interval history: Patient is doing well postoperatively. She is ambulating and voiding without difficulty. She is tolerating a regular diet, without nausea or vomiting. Lochia is minimal. She denies concerns breast-feeding is going well. Patient reports: Reports appetite normal, Reports voiding normally, Reports pain well controlled, Reports ambulating normally : doing well, nursing well Objective - Vital Signs Latest vital signs: Vital Signs Temp Pulse Resp BP Pulse Ox 06/15/24 03:41 97.8 F 70 16 106/72 97 06/15/24 00:48 16 06/15/24 00:30 98.2 F 81 16 126/81 96 06/14/24 20:00 97.5 F L 77 16 107/72 96 06/14/24 17:18 98.4 F 85 16 119/62 98 06/14/24 15:03 98.2 F 82 16 110/65 06/14/24 14:48 80 16 06/14/24 14:18 78 16 112/65 98 06/14/24 14:03 82 16 121/63 98 06/14/24 13:48 79 16 115/76 99 06/14/24 13:33 79 16 121/74 98 06/14/24 13:18 88 16 117/56 98 06/14/24 13:05 96.4 F L 89 16 101/47 99 06/14/24 11:08 98.0 F 100 16 118/76 98 Intake and Output 06/14/24 06/15/24 06/15/24 22:59 06:59 14:59 Output Total 1230 1200 Balance -1230 -1200 Output: Urine 1200 1200 Uretheral (Turcios) 1200 Output, Quantitative 30 Blood Loss Other: # Voids 1 - Exam Extremities: Present: normal, edema Abdomen: Present: normal appearance, soft Incision: Present: dry, intact. Absent: normal Uterus: Present: normal, firm - Labs Labs: Abnormal Lab Results - Last 24 Hours (Table) 06/14/24 06/15/24 Range/Units 11:00 03:37 WBC 11.9 H (3.8-10.6) k/uL RBC 3.60 L (3.80-5.40) m/uL Hgb 9.8 L 8.5 L (11.4-16.0) gm/dL Hct 30.7 L 26.9 L (34.0-46.0) % MCV 74.1 L 74.7 L (80.0-100.0) fL MCH 23.6 L 23.6 L (25.0-35.0) pg RDW 15.6 H 15.8 H (11.5-15.5) % Neutrophils # 8.3 H (1.3-7.7) k/uL Assessment and Plan (1) Term Current Visit: Yes Status: Acute Code(s): Z34.90 - ENCNTR FOR SUPRVSN OF NORMAL , UNSP, UNSP TRIMESTER SNOMED Code(s): 26754402 (2) History of section Current Visit: Yes Status: Acute Code(s): Z98.891 - HISTORY OF UTERINE SCAR FROM PREVIOUS SURGERY SNOMED Code(s): 570149055 (3) Status post section Current Visit: No Status: Acute Code(s): Z98.891 - HISTORY OF UTERINE SCAR FROM PREVIOUS SURGERY SNOMED Code(s): 887187801 Plan: Patient is doing well postoperatively. Will plan to continue routine postoperative care and anticipate discharge home tomorrow.
[2024-06-16] MEDS: PRENATAL VIT-IRON-FOLIC ACID 1 EACH TABLET PO SCH (05:16)
[2024-06-16 08:12] VITALS: BP 133/86; PULSE 76; RESP 16; TEMP 98.1
--- NOTE | 2024-06-16 09:56 | P.DS ---
Providers Date of admission: 06/14/24 09:57 Expected date of discharge: 06/16/24 Attending physician: Lalita Dong Primary care physician: Stated None - Discharge Diagnosis(es) (1) Term Current Visit: Yes Status: Acute (2) History of section Current Visit: Yes Status: Acute (3) Status post section Current Visit: No Status: Acute Hospital Course: 29-year-old G2 now P2 that presented to labor and delivery on 06/14 for scheduled repeat section. Patient had been receiving routine care which has been essentially uncomplicated. For full details in this patient please see the dictated history and physical. Patient was taken back to the operating suite where was performed without complication. Patient delivered a viable female at 1232, weight of 8 pounds 11 ounces. Patient's postoperative course has been uneventful. In this postoperative day #2 she is ambulating and voiding without difficulty. She is tolerating a regular diet without nausea or vomiting. She states her pain is well-controlled. She would like discharge home. Patient Condition at Discharge: Good Plan - Discharge Summary New Discharge Prescriptions: No Action [id number]/Iron/FA/O3/Dha/Epa/Fish [ Multi-Dha Softgel] 1 tab PO DAILY Discharge Medication List [id number]/Iron/FA/O3/Dha/Epa/Fish [ Multi-Dha Softgel] 1 tab PO DAILY 12/09/19 [History] Follow up Appointment(s)/Referral(s): Lalita Dong DO [Doctor of Osteopathic Medicine] - 1 Week Patient Instructions/Handouts: (DC), (GEN) Activity/Diet/Wound Care/Special Instructions: No intercourse, tampons or tub baths. No driving for two weeks. Call with any fever, shakes or chills, with any pain not alleviated by over the counter meds, or with any quesyions or concerns. [id number] ibuprofen 600 mg or 3 t ablets every 6 hours as needed for pain. Discharge Disposition: HOME SELF-CARE
== END 2024-06-16 15:35 | disposition home or self-care (01) | DRG 785 ==
LOC: 4FBP 09:57
PROVIDERS: ADMIT Obstetrics & Gynecology Obstetrics; ATTEND Obstetrics & Gynecology Obstetrics
PROC: 0UB70ZZ Excision of Bilateral Fallopian Tubes, Open Approach (ICD-10-PCS; principal; 2024-06-14 12:00)
PROC: 10D00Z1 Extraction of Products of Conception, Low, Open Approach (ICD-10-PCS; principal; 2024-06-14 12:00)
DX: O34.211 Maternal care for low transverse scar from previous cesarean delivery (principal); Z30.2 Encounter for sterilization; Z37.0 Single live birth; Z3A.39 39 weeks gestation of pregnancy; Z71.89 Other specified counseling
CPT/HCPCS: 85025; 85461; 86850; 86900; 86901; 88302